=== PATIENT | female | born 1960 | race Caucasian/White ===

== ENCOUNTER 2020-02-11 01:21 | Outpatient (CLI) | payer OTHER, SELFPAY ==
[2020-02-11 19:01] LABS: SARS-CoV-2 RNA PCR Negative
== END 2020-02-11 01:22 | disposition home or self-care (01) ==
LOC: ANHCOVIDDT 01:22
PROVIDERS: PCP Internal Medicine; Visit Provider Podiatrist Foot & Ankle Surgery
DX: Z01.818 Encounter for other preprocedural examination (principal); Z11.59 Encounter for screening for other viral diseases
CPT/HCPCS: 87635; C9803; U0003

== ENCOUNTER 2020-02-13 03:38 | Day surgery (SDC) | payer OTHER, SELFPAY ==
[2020-02-02 17:31] VITALS: BMI 24.3
[2020-02-13] VITALS (8 sets, daily range): BP systolic 125–137; BP diastolic 71–83; PULSE 65–74; RESP 10–20; TEMP 36.2; O2SAT 95–100
--- NOTE | ~2020-02-13 | XR_ITS ---
XR surgery orthopedic DATE: 02/13/2020 13:48 INDICATION: Right first metatarsophalangeal joint arthrodesis TECHNIQUE: 7 seconds fluoroscopy time 0.6166 cGy*cm2 total DAP 5 spot C-arm Images COMPARISON: None FINDINGS: A K wire is placed through the region of the first metatarsophalangeal joint. Dorsal plate and posterior anteriorly directed through screws are placed at the distal first metatarsal and proxim al phalanx IMPRESSION: Status post arthrodesis at first metatarsophalangeal joint Reviewed, dictated and finalized at [facility]. Reviewed, dictated and finalized at [facility].
--- NOTE | 2020-02-13 07:12 | WPDHPUPDATE1 ---
History and Physical Update Update Date/Time: 02/13/20 07:12 History and Physical has been reviewed, including an updated exam of the patient. There are NO changes in the patient's condition. Risks, benefits, and alternatives have been discussed and questions answered. Patient agrees to proceed with procedure.
[2020-02-13] MEDS: LACTATED RINGERS 1,000 ML 30 ML IV CONT ×2 (10:45→14:08)
--- NOTE | 2020-02-13 11:08 | WPDANESEPPF ---
Anes - Initial Pre Proc Eval Procedure: Operation Date: 02/13/20 12:00 Proposed Procedures p Arthrodesis First Metatarsophalangeal Joint Right Foot - Rigo Araujo JR, MD Date/Time: 02/13/20 11:08 Surgeon: Rigo Araujo JR, MD Pre Op Diagnosis: OA Rt Foot Patient Data Age: 59 Gender: F Height: 5 ft 7 in Weight: 72.1 kg Allergies Allergy/AdvReac Type Severity Reaction Status Date / Time tetracycline Allergy Mild Redness of Verified 02/13/20 10:06 Skin oxytetracycline Allergy Unknown Redness of Verified 02/13/20 10:06 Skin Home Medications Medication Instructions Recorded Confirmed Type [id number]-[id number]-grhhl acid 1 tablet PO DAILY 02/02/20 02/13/20 History [[facility]] Patient hx anesthesia problems: post op nausea/vomiting Family hx anesthesia problems: none PMFSH Past Medical History Medical History Anxiety Family History Family History Mother Cerebrovascular accident Father Family history of Parkinson's disease Family history of heart disease in male family member before age 55 Sibling Family history of diabetes mellitus in first degree relative Family history of malignant neoplasm of breast in first degree relative Social History Social History Smoking status: Never smoker Second hand tobacco smoke exposure: No Alcohol intake: never Substance use: never Living arrangements: with family Spiritual care concerns: No Anes - Eval Final PreProcedure Day of Procedure 02/13/20 11:08 Patient weight: normal Heart: regular rate and rhythm Lungs: clear to auscultation Airway: Mallampati scale class II Neurological: alert and oriented Last oral intake: >/= 8 hours ASA classification: II Emergent: no Anesthetic plan: proceed Anesthesia type and monitoring: general LMA and standard monitoring Informed Consent: The patient's anesthetic plan and its attendant risks and benefits were discussed with the patient/family/POA. Questions were solicited and answers provided to the satisfaction of the patient/family/POA.
[2020-02-13] MEDS: SCOPOLAMINE 1.5 MG PATCH TRANSDERM (11:30)
[2020-02-13] MEDS: ceFAZolin 2 GM/D5W 50 ML 2 GM/50 ML BAG IVPB (12:35)
[2020-02-13] MEDS: KETOROLAC 30 MG/ML VIAL (*BKC) IV PUSH (14:00)
--- NOTE | 2020-02-13 14:08 | PM.OP ---
Procedure Note - Brief Procedure Note - Brief Date of procedure: 02/13/20 Pre-op diagnosis: OA Rt Foot Post-op diagnosis: same Procedure performed: Arthrodesis of the first metatarsal phalangeal joint right foot Anesthesia: GLMA Surgeon: Rigo Araujo JR, DPM Estimated blood loss (mL): 1 Complications: No immediate complications Condition: stable Disposition: same day
--- NOTE | 2020-02-13 20:12 | OP_ITS ---
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 PROCEDURE: Arthrodesis of the 1st metatarsophalangeal joint of the right foot. PATHOLOGY: None. ANESTHESIA: General with local. HEMOSTASIS: Pneumatic ankle tourniquet at 250 mmHg. ESTIMATED BLOOD LOSS: Minimal. MATERIALS USED: One [employer] Crosscheck plate with four 2.7 mm locking screws and one 3.5 mm lag screw. INJECTABLES: 20 mL of Exparel injected preoperatively. COMPLICATIONS: None. PROCEDURE IN DETAIL: Under mild sedation, the patient was brought to the operating room and placed on the operating table in the supine position. Pneumatic ankle tourniquet was placed about the patient's right ankle. Following general anesthesia, local anesthesia was obtained about the right foot utilizing 20 mL of Exparel. The foot was then scrubbed, prepped, and draped in the usual aseptic manner. An Esmarch bandage was then used to examine the patient's right foot and pneumatic ankle tourniquet was inflated. Incision was made along the dorsal aspect of the 1st metatarsophalangeal joint of the right foot just medial to the extensor hallucis longus tendon. At this point, a full length periosteum incision was made, the full length of the skin incision exposing the base of the proximal phalanx as well as the head of the 1st metatarsal. There was significant hypertrophy both medially, laterally, dorsally and plantarly to the 1st metatarsophalangeal joint. All excessive hypertrophied bone was resected utilizing a sagittal bone saw. Furthermore, a power bur was used to smooth any rough surfaces. Utilizing the reamer system for the [employer] Crosscheck plate system, the significantly damaged articular surface was fully resected utilizing the 16 mm reamer both to the head of the 1st metatarsal base of the proximal phalanx in a cannulated fashion. Once the damaged articular cartilage was resected with the reamer system, the head of the 1st metatarsal as well as the base of the proximal phalanx were then fenestrated utilizing 2.0 drill bit in order to promote fusion across the arthrodesis site. Utilizing a 0.067 K-wire, the hallux was held in a rectus position anterior to the 1st metatarsal. K-wire was used to make sure that the hallux was in a rectus position in all planes and that there was no extensus to the hallux, so a large flat plate was used to make sure that the hallux was purchasing the floor to simulate weightbearing. At this point, the [facility] Crosscheck plate was placed atop the prepared arthrodesis site. Next, the 2 distal drill holes were driven from dorsal to plantar and two 2.7 mm locking screws were driven across the proximal phalanx base. A 3.5 mm lag screw was driven from dorsal distal to proximal plantar across the arthrodesis site prior to complete compression across the arthrodesis site. The temporary fixation was removed in order to make certain that complete compression was achieved. Finally, the 2 proximal drill holes were driven from dorsal to plantar across the 1st metatarsal shaft area. Two 2.7 mm [facility] locking screws were used. The wound site was then flushed with copious amounts of sterile saline. Fluoroscopy was used to make sure that the hardware was appropriately aligned and oriented and that the screws were of appropriate length and orientation. Excellent correction was noted and excellent compression was also noted. Next, the periosteum and capsular structures were reapproximated and coapted utilizing 3-0 Vicryl. Next, the subcutaneous structures were reapproximated and coapted utilizing 4-0 Vicryl.
== END 2020-02-13 16:34 | disposition home or self-care (01) ==
PROVIDERS: Visit Provider Podiatrist Foot & Ankle Surgery
PROC: (CPT 28750; principal; 2020-02-13 12:00)
DX: M19.071 Primary osteoarthritis, right ankle and foot (principal)
CPT/HCPCS: 28750; A9270; C1713; C9290; J0131; J0690; J1100; J1885; J2250; J2405; J2704; J2765; J3010; J7120